=== PATIENT | male | born 1975 ===

== ENCOUNTER 2020-06-22 07:24 | Outpatient (REF) | payer OTHER, SELFPAY ==
[2020-06-22 11:07] LABS: Alanine Aminotransferase 114 U/L (0-40); Albumin Level 4.3 g/dL (3.5-5.0); Alkaline Phosphatase 99 U/L (39-117); Anion Gap 10 (12-20); Aspartate Amino Transferase 123 U/L (5-37); Bilirubin Total 0.5 mg/dL (0.0-1.0); Blood Urea Nitrogen 20 mg/dL (9-16); Calcium 9.2 mg/dL (8.4-10.2); Carbon Dioxide 27 mmol/L (22-29); Chloride 106 mmol/L (96-108); Cholesterol 211 mg/dL; Estimated Glomerular Filt Rate > 60; Glucose Fasting 101 mg/dL (60-99); HDL Cholesterol 37 mg/dL; Potassium 4.9 mmol/l (3.3-5.1); Sodium 138 mmol/L (135-145); Total Protein 7.2 g/dL (6.5-8.0); Triglycerides 443 mg/dL
== END 2020-06-22 07:25 | disposition home or self-care (01) ==
LOC: HO.WFDLDS 07:24
PROVIDERS: Visit Provider Family Medicine
DX: Z00.00 Encounter for general adult medical examination without abnormal findings (principal); Z13.220 Encounter for screening for lipoid disorders; Z13.29 Encounter for screening for other suspected endocrine disorder
CPT/HCPCS: 80053; 80061; 84443

== ENCOUNTER 2020-09-07 07:34 | Outpatient (REF) | payer OTHER, SELFPAY ==
[2020-09-07 11:20] LABS: Alanine Aminotransferase 40 U/L (0-40); Albumin Level 4.6 g/dL (3.5-5.0); Alkaline Phosphatase 75 U/L (39-117); Anion Gap 12 (12-20); Aspartate Amino Transferase 43 U/L (5-37); Bilirubin Total 0.6 mg/dL (0.0-1.0); Blood Urea Nitrogen 20 mg/dL (9-16); Calcium 9.3 mg/dL (8.4-10.2); Carbon Dioxide 27 mmol/L (22-29); Chloride 104 mmol/L (96-108); Cholesterol 206 mg/dL; Estimated Glomerular Filt Rate > 60; Glucose Random 98 mg/dL (60-115); HDL Cholesterol 42 mg/dL; LDL Cholesterol Calculated 140 mg/dl; Potassium 4.8 mmol/L (3.3-5.1); Sodium 138 mmol/L (135-145); Total Protein 7.1 g/dL (6.5-8.0); Triglycerides 122 mg/dL
[2020-09-08 06:37] LABS: LDL Cholesterol Direct 138 mg/dL (<100)
== END 2020-09-07 07:35 | disposition home or self-care (01) ==
LOC: HO.WFDLDS 07:34
PROVIDERS: Visit Provider Family Medicine
DX: Z00.00 Encounter for general adult medical examination without abnormal findings (principal); E78.2 Mixed hyperlipidemia; R74.01 Elevation of levels of liver transaminase levels
CPT/HCPCS: 36415; 80053; 80061; 83721

== ENCOUNTER 2023-09-08 11:46 | Outpatient (AMB) | payer OTHER, SELFPAY ==
--- NOTE | 2023-09-08 12:10 | A.OFFPC_ITS ---
Vital Signs 09/08/23 12:11 Height 5 ft 9 in Weight 239 lb BMI 35.3 BP 142/92 H Blood Pressure Location Lt brachial Position Sitting Pulse 66 Pulse Oximetry (%) 100 Oxygen Delivery Method Room Air Intake Visit Reasons: Annual Physical Intake Note: Patient is here for his physical today. Allergies No Known Allergies [No Known Allergies*] Allergy (Verified 09/08/23 12:12) Tobacco use date assessed: 09/08/23 Dental Screening Dental Screen Date: 09/08/23 Did you have a dental visit in the last 12 months?: Yes Did you have a dental problem in the last 6 months where you did not have access to dental care?: No Was dental information given to patient?: Patient has dentist HPI Annual Physical HPI Details 47 y/o male presents for a CPE with f/u labs and health maintenance. No recent labs to review. Blood pressure today 142/92. He is not on any meds for his blood pressure. Pt reports snoring and does have prominent tonsils. HPI Comments History of Present Illness Details Documentation assistance for Jose Miguel Kimble MD, was provided by Javier Parra,? Site Project Manager on 09/08/2023 12:41 PM EST. I, Dr. Kimble, have read, observed, and verified documentation.? [facility] Surgical History (Updated 09/08/23 @ 12:15 by Cece Brown CMA) S/P hernia surgery Social History Housing: House Patient Tobacco Use Status: Former Tobacco user e-Cigarette/Vaping Use: Never Used service: No Current occupational status: employed Current occupation: rehabilitation consultant Cognitive needs: No Hearing needs: No Vision needs: No Questionnaire PHQ-9 Over the last 2 weeks, how often have you been bothered by any of the following problems? 1. Little interest or pleasure in doing things: not at all 2. Feeling down, depressed, or hopeless: not at all 3. Trouble falling or staying asleep, or sleeping too much: not at all 4. Feeling tired or having little energy: not at all 5. Poor appetite or overeating: not at all 6. Feeling bad about yourself - or that you are a failure or have let yourself or your family down: not at all 7. Trouble concentrating on things, such as reading the newspaper or watching television: not at all 8. Moving or speaking so slowly that other people could have noticed. Or the opposite - being so fidgety or restless that you have been moving around a lot more than usual: not at all 9. Thoughts that you would be better off or of hurting yourself in some way: not at all Total score: 0 Depression Screening Interpretation: Negative Depression Screening Done: Yes 75248 - PHQ-9 Billing: Yes Source: Developed by Drs. Davon Lay, Miranda Rodríguez, Zheng Dueñas and colleagues, with an educational shelia from [employer]. Thrive Questionnaire Date Thrive assessed: 09/08/23 I am a: Patient What is your living situation today?: I have a steady place to live Within the past 12 months, did the food you bought not last and you didn't have the money to get more?: Never true Within the past 12 months, did you worry whether your food would run out before you got money to buy more?: Never true Do you have trouble paying for medicines?: No Do you have trouble getting transportation to medical appointments?: No Do you have trouble paying your heating and electricity bill?: No Do you have trouble taking care of your child, family member or friend?: No Do you have trouble with day-to-day activities such as bathing, preparing meals, shopping, managing finances, etc.?: No Are you currently unemployed and looking for a job?: No Are you interested in more education?: No THRIVE Score: 0 AUDIT C Alcohol Use Questionnaire (AUDIT-C) 1. How often do you have a drink containing alcohol?: 2-3 times a week 2. How many drinks containing alcohol do you have on a typical day when you are drinking?: 1 or 2 3. How often do you have six or more drinks on one occasion?: Never Total Score: 3 KYLEIGH-7 AMB Questionnaire KYLEIGH-7 Date KYLEIGH - 7 assessed: 09/08/23 Feeling nervous, anxious, or on edge: 0 = Not at all Not being able to stop or control worryin = Not at all Worrying too much about different things: 0 = Not at all Trouble relaxin = Not at all Being so restless that it is hard to sit still: 0 = Not at all Becoming easily annoyed or irritable: 0 = Not at all Feeling afraid as if something awful might happen: 0 = Not at all Total KYLEIGH-7 score (0-4 normal; 5-9 mild; 10-14 moderate; 15-21 severe): 0 Source: Developed by Drs. Davon Lay, Miranda Rodríguez, Zheng Dueñas and colleagues, with an educational shelia from [employer]. KYLEIGH-7 Assessment Billing KYLEIGH-7 Assessment Tool: KYLEIGH-7 Assessment 97367 Review of Systems Const Denies chills, Denies fatigue, Denies fever(s), Denies headache(s) and Denies weakness Eyes Denies change in vision ENT Denies dizziness, Denies headache(s), Denies hearing loss, Denies nasal congestion, Denies sinus pain, Denies sinus pressure and Denies sore throat Card Denies chest pain, Denies lightheadedness, Denies dyspnea and Denies other (palpitations) Resp Denies cough, Denies dyspnea and Denies wheezing GI Denies abdominal pain, Denies melena, Denies hematochezia, Denies change in bowel habits, Denies dyspepsia and Denies nausea Denies hematuria and Denies dysuria Musc Denies abnormal gait, Denies myalgias, Denies arthralgias, Denies numbness and Denies tingling Skin/Breast Denies rash, Denies unusual bruising and Denies wounds Neuro Denies abnormal gait, Denies dizziness, Denies headache(s), Denies memory loss, Denies numbness, Denies Sensory deficit (Neuro), Denies tingling and Denies weakness Psych Denies anxiety, Denies depression and Denies memory loss Endo Denies cold intolerance, Denies fatigue, Denies heat intolerance, Denies polydipsia and Denies polyuria Messi/Lymph Denies easy bleeding and Denies easy bruising Aller/Immun Denies wheezing Physical exam (Primary Care) Vital Signs: Last Vital Signs Pulse 66 09/08/23 12:11 BP 142/92 H 09/08/23 12:11 Pulse Ox 100 09/08/23 12:11 Oxygen Delivery Method Room Air 09/08/23 12:11 BMI result Body Mass Index 35.3 Tobacco/Smoking Status: Tobacco use Status Tobacco use date assessed 09/08/23 09/08/23 12:22 Patient Tobacco Use Status Former Tobacco user 09/08/23 12:22 e-Cigarette/Vaping Use Never Used 09/08/23 12:22 PHQ-9: PHQ-9 Score PHQ-9: Total score 0 09/08/23 12:22 Depression Screening Interpretation: Negative Thrive Assessment: Date of Thrive Assessment Date Thrive assessed 09/08/23 09/08/23 12:22 Const General: no acute distress, well developed, alert and awake Nutritional Appearance: well nourished Orientation/consciousness: patient oriented x3 HENMT Head: Yes normocephalic and Yes atraumatic Ears: hearing grossly normal bilaterally and TM's normal bilaterally General nose exam: Normal external nose present and Normal nares present Mouth: Normal oral and palatal mucosa present and moist mucous membranes Teeth and gingiva: dentition normal Throat: Yes posterior oropharynx normal Eyes General: appearance normal, both eyes and all related structures Pupils: Equal, round and reactive pupils present and Pupil accommodation reflex normal EOM: EOMs intact bilaterally Neck Neck: Yes normal visual inspection, Yes no lymphadenopathy and Yes trachea midline Thyroid: Thyroid normal Carotids: no bruits Lymphatic: no lymphadenopathy noted Chest Chest palpation & inspection: normal inspection of the chest Resp Effort & Inspection: normal respiratory effort Auscultation: clear to auscultation bilaterally Cardio Rate: regular rate Rhythm: regular rhythm Heart sounds: S1 normal heart sound present, S2 normal heart sound present, no gallops, no murmurs and no rubs Bruits: no abdominal aortic bruits and no carotid bruits GI Palpation (GI): No Abdominal aortic bruit present, Soft to palpation, nontender, No hepatosplenomegaly present and No Rebound tenderness present Auscultation: normal bowel sounds General: Yes no CVA tenderness Back/Spine/Pelvis Back: no CVA tenderness Cervical Spine: cervical ROM normal and No Cervical spine tenderness Thoracic/Lumbar Spine: thoraco-lumbar ROM normal, No pain with thoraco-lumbar ROM, No thoracic spinal tenderness and No lumbar spinal tenderness Skin Lesions: no lesions Rashes: no rashes Trauma: no lacerations or abrasions Wounds: no wounds Nails: normal Neuro General: patient oriented x3 Cranial nerves: Yes Equal, round and reactive pupils present Cognition (Neuro): normal cognition Gait exam (Neuro): Normal gait present Motor exam (neuro): 5/5 motor strength present throughout Sensory Exam: No Sensory deficit (Neuro) Deep tendon reflexes (DTR's): Right patellar reflex intensity grade: 2+ and Left patellar reflex intensity grade: 2+ Extrem General: Yes normal to inspection and No edema Psych Appearance: grossly normal Affect: normal affect Attitude: cooperative Thought process: Normal thought process present Assessment and Plan Assessment & Plan (1) Annual physical exam: Code(s): Z00.00 - Encounter for general adult medical examination without abnormal findings Plan: 47-year-old?male?presents?for?complete?physical?exam Encouraged?healthy?diet?with?active?lifestyle?and?exercise (2) Hypertension: Code(s): I10 - Essential (primary) hypertension (3) Mixed hyperlipidemia: Code(s): E78.2 - Mixed hyperlipidemia Plan: Elevated?lipid?levels?and?his?triglycerides?have?been?very?high. He?was?treated?with?gemfibrozil He?will?get?his?labs?rechecked?checked?as?soon?as?he?can?and?we?can?follow-up?at ?a?soon-visit Will?likely?need?to?resume?a?fenofibrate (4) Screening for prostate cancer: Code(s): Z12.5 - Encounter for screening for malignant neoplasm of prostate Plan: Check?PSA (5) Elevated blood pressure reading without diagnosis of hypertension: Code(s): R03.0 - Elevated blood-pressure reading, without diagnosis of hypertension Plan: Will?recheck?his?blood?pressure?at?his?next?visit. If?still?high,?we?should?discuss?treatments?for?hypertension (6) Screening for colon cancer: Code(s): Z12.11 - Encounter for screening for malignant neoplasm of colon Plan: Recent?Cologuard?test?last?month?was?negative Up-to-date Will?continue?screening?every?3?year (7) Sleep apnea: Code(s): G47.30 - Sleep apnea, unspecified Plan: Snoring,?gasping?and?prominent?tonsil Referred?to?Sleep?Medicine (8) Change in hearing: Code(s): H91.90 - Unspecified hearing loss, unspecified ear Plan: Mild?decrease?in?hearing?but?patient?notes?that?it?seems?to?be?progressing. Check?audiology May?need?referral?to?ENT Orders: Orders Comprehensive [place]. Panel Fast Today Z00.00 - Encounter for general adult medical examination without abnormal findings Prostate Specific Antigen Scr Today Z12.5 - Encounter for screening for malignant neoplasm of prostate TSH reflex Free T4 Today Z00.00 - Encounter for general adult medical examination without abnormal findings UA and rflx microscopic Today Z00.00 - Encounter for general adult medical examination without abnormal findings Lipid Panel Today Z00.00 - Encounter for general adult medical examination without abnormal findings Microalbumin, Random (w Creat) Today I10 - Essential (primary) hypertension Referrals Audiology Referral H91.90 - Unspecified hearing loss, unspecified ear Sleep Medicine Referral G47.30 - Sleep apnea, unspecified Coding Level of Care Code Est Pt Level 3 (03761) Est Pt Prev Care 40-64y(75739) Diagnoses Annual physical exam Z00.00 Hypertension I10 Mixed hyperlipidemia E78.2 Screening for prostate cancer Z12.5 Elevated blood pressure reading without diagnosis of hypertension R03.0 Screening for colon cancer Z12.11 Sleep apnea G47.30 Change in hearing H91.90 Additional Codes KYLEIGH-7 Assessment Billing - KYLEIGH-7 Assessment Tool: KYLEIGH-7 Assessment 32957 ([id number])
[2023-09-08 12:11] VITALS: BP 142/92; PULSE 66; O2SAT 100; BMI 35.3
== END 2023-09-08 12:43 | disposition home or self-care (01) ==
PROVIDERS: PCP Family Medicine; Visit Provider Family Medicine
DX: Z00.00 Encounter for general adult medical examination without abnormal findings (principal); I10 Essential (primary) hypertension; E78.2 Mixed hyperlipidemia; Z12.5 Encounter for screening for malignant neoplasm of prostate; R03.0 Elevated blood-pressure reading, without diagnosis of hypertension; Z12.11 Encounter for screening for malignant neoplasm of colon; G47.30 Sleep apnea, unspecified; H91.90 Unspecified hearing loss, unspecified ear
CPT/HCPCS: 99396

== ENCOUNTER 2023-10-13 15:31 | Outpatient (AMB) | payer OTHER, SELFPAY ==
--- NOTE | 2023-10-13 15:36 | A.OFFVIS_ITS ---
Intake Vital Signs 10/13/23 15:40 Height 5 ft 9 in Weight 242 lb 6 oz BMI 35.8 BP 120/82 Blood Pressure Location Lt brachial Position Sitting Pulse 73 Pulse Source Pulse Oximeter Pulse Oximetry (%) 97 Oxygen Delivery Method Room Air Intake Visit Reasons: INP-JOSE MANUEL - CONF w/address Intake Note: Patient presents for JOSE MANUEL. Allergies No Known Allergies [No Known Allergies*] Allergy (Verified 10/13/23 15:40) HPI HPI Comments History of Present Illness Details 48 y/o male patient presents for new in- person visit for sleep consultation. Pt reports loud snoring, and it has been progressed. Pt does not have difficulty falling asleep or staying sleep. His BP was elevated recently and his primary care wants to r/o sleep apnea. He drinks usually 1 can of beer before sleep, maybe couple of beers on weekends. Sleep questionnaire: Have you ever been diagnosed with a sleep disorder? No. Have you ever had a sleep study in the past? No. Have you ever been treated for a sleep disorder? No. Do you take medications for a sleep disorder? No. Do you snore? Yes. Do you wake up gasping at night? No. Do you have episodes of apneas? No. If yes, are they witnessed? No. Do you have episodes of nocturnal chest pain or dyspnea? No. Do you have difficulty initiating sleep? No. Do you have difficulty maintaining sleep? No. Do you wake up tired? No. Do you have headaches upon awakening? No. Do you wake up with dry mouth or throat? Not usually. Do you have GERD? No. Do you have nocturia? No. Do you have nocturnal leg cramps? No. Do you have symptoms of restless legs? No. Do you act out your dreams? Yes, sometimes. Sleep hygiene questionnaire: What is your usual sleep routine? Usual bedtime is at 10-11 pm ; Usual wake up time is at 5 am. Do you take naps? No. Is your sleep environment cool, dark, and quiet? Yes. Do you exercise? Treadmill and wt lifting. Do you take caffeine or other stimulants? 3-4 cups of coffee throughout the day. Do you use electronics in bed? No. What is your work schedule? 8 am- 5 pm. Hypersomnolence questionnaire: Do you have daytime tiredness or fatigue? Yes. Do you easily fall asleep when inactive? Yes. Have you ever had episodes of sudden weakness? No. Have you ever had episodes of sudden weakness associated with strong emotions? No. PFSH Surgical History S/P hernia surgery Social History Housing: House Patient Tobacco Use Status: Former Tobacco user e-Cigarette/Vaping Use: Never Used service: No Current occupational status: employed Current occupation: property management accountant Cognitive needs: No Hearing needs: No Vision needs: No Review of Systems Const All systems reviewed & are unremarkable except as noted in HPI and below Physical Exam Vital Signs: Last Vital Signs Pulse 73 10/13/23 15:40 BP 120/82 10/13/23 15:40 Pulse Ox 97 10/13/23 15:40 Oxygen Delivery Method Room Air 10/13/23 15:40 BMI result Body Mass Index 35.8 Const General: cooperative and healthy appearing Nutritional Appearance: obese Orientation/consciousness: patient oriented x3 Neck Neck: Yes full ROM and Yes supple Resp Effort & Inspection: normal respiratory effort and able to speak in complete s entences Neuro General: patient oriented x3, gait normal and moves all extremities Cranial nerves: Yes CN's II-XII intact bilaterally Cognition (Neuro): normal cognition Gait exam (Neuro): Normal gait present Motor exam (neuro): 5/5 motor strength present throughout Psych Appearance: grossly normal Mental Status: mental status grossly normal Affect: normal affect Attitude: cooperative Assessment & Plan Assessment & Plan (1) Loud snoring: Code(s): R06.83 - Snoring (2) Sleep apnea: Code(s): G47.30 - Sleep apnea, unspecified Plan Pt is advised to undergo home sleep study to assess for sleep apnea. Will f/u with pt after study to discuss results and appropriate treatment options. Sleep hygiene education provided. Advised patient to limit alcohol intake before bedtime to have good quality sleep. Pt to call with any worsening concerns or questions. Orders: Orders RT home sleep study 10/13/23 G47.30 - Sleep apnea, unspecified, R03.0 - Elevated blood-pressure reading, without diagnosis of hypertension, R06.83 - Snoring Coding Level of Care Code New Pt Level 3 (37227) Diagnoses Loud snoring R06.83 Sleep apnea G47.30
[2023-10-13 15:40] VITALS: BP 120/82; PULSE 73; O2SAT 97; BMI 35.8
== END 2023-10-13 15:59 | disposition home or self-care (01) ==
PROVIDERS: PCP Family Medicine; Visit Provider Nurse Practitioner Family
DX: R06.83 Snoring (principal); G47.30 Sleep apnea, unspecified
CPT/HCPCS: 99203

== ENCOUNTER → 2023-10-13 15:31 | Outpatient (BNVA) | payer OTHER, SELFPAY | PROVIDERS: PCP Family Medicine; Visit Provider Nurse Practitioner Family ==

== ENCOUNTER 2024-03-02 08:00 | Outpatient (AMB) | payer OTHER, SELFPAY ==
[2024-03-02 08:08] VITALS: BP 122/76; PULSE 72; RESP 16; O2SAT 98; BMI 36.0
--- NOTE | 2024-03-02 08:08 | A.OFFVIS_ITS ---
Vital Signs 03/02/24 08:08 Height 5 ft 9 in Weight 244 lb BMI 36.0 BP 122/76 Blood Pressure Location Rt brachial Position Sitting Respiration 16 Pulse 72 Pulse Source Pulse Oximeter Pulse Oximetry (%) 98 Oxygen Delivery Method Room Air Intake Visit Reasons: 4 mo f/u-LVM Intake Note: Pt presents tot he office for a 5 month follow up for snoring. 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 Pt denies any significant interval medical changes. Pt did not have HST after the last visit, he was under the impression that he did not really need to do it. However, he has been told that he is having increased snoring, witnessed apneas, which is scaring his partner. He iis more concerned. He also endorses unrefreshing sleep, some daytime sleepiness but tends to be active throughout the day so not many opportunities to sleep during the day. He notes he has always had enlarged tonsils. Not prone to frequent throat infections or strep throat type infections. He has been trying to eat better. His BMI is 36. [facility], [facility] Surgical History S/P hernia surgery Social History Housing: House Patient Tobacco Use Status: Former Tobacco user e-Cigarette/Vaping Use: Never Used service: No Current occupational status: employed Current occupation: hedge fund accountant Cognitive needs: No Hearing needs: No Vision needs: No Physical Exam Vital Signs: Last Vital Signs Pulse 72 03/02/24 08:08 Resp 16 03/02/24 08:08 BP 122/76 03/02/24 08:08 Pulse Ox 98 03/02/24 08:08 Oxygen Delivery Method Room Air 03/02/24 08:08 BMI result Body Mass Index 36.0 Const General: cooperative and no acute distress Orientation/consciousness: patient oriented x3 HEENT Other: Mallampati stage III w/ enlarged tonsils Resp Effort & Inspection: normal respiratory effort and able to speak in complete sentences Neuro General: patient oriented x3 Cranial nerves: Yes CN's II-XII intact bilaterally Cognition (Neuro): normal cognition Psych Appearance: grossly normal Mental Status: mental status grossly normal Speech and movement: Normal speech and movement present Affect: normal affect Attitude: cooperative Assessment & Plan Assessment & Plan (1) Loud snoring: Code(s): R06.83 - Snoring Category: Medical (2) Elevated blood pressure reading without diagnosis of hypertension: Code(s): R03.0 - Elevated blood-pressure reading, without diagnosis of hypertension Category: Medical (3) Witnessed apneic spells: Code(s): R06.81 - Apnea, not elsewhere classified Category: Medical (4) Excessive daytime sleepiness: Code(s): G47.19 - Other hypersomnia Category: Medical Plan Pt advised to undergo HST to assess for sleep apnea. Upon review, consider next steps. If HST does not show sleep apnea, consider referral to ENT. f/u upon review of above and in 6 months or sooner prn. Orders: Orders RT home sleep study Today G47.19 - Other hypersomnia, R03.0 - Elevated blood- pressure reading, without diagnosis of hypertension, R06.81 - Apnea, not elsewhere classified, R06.83 - Snoring Coding Level of Care Code Est Pt Level 3 (32264) Diagnoses Loud snoring R06.83 Elevated blood pressure reading without diagnosis of hypertension R03.0 Witnessed apneic spells R06.81 Excessive daytime sleepiness G47.19 [place] Sleepiness Scale Questions Sitting and reading: moderate chance of dozing Watching TV: moderate chance of dozing Sitting inactive in a theater, movie etc.: moderate chance of dozing As a passenger in a car for an hour without break: would never doze Lying down in the afternoon when circumstances permit: moderate chance of dozing Sitting and talking to someone: would never doze Sitting quietly after lunch without alcohol: moderate chance of dozing In a car, while stopped for a few minutes in the traffic: would never doze ESS < 10: normal, ESS > 12: pathologic: 10
== END 2024-03-02 08:36 | disposition home or self-care (01) ==
PROVIDERS: PCP Family Medicine; Visit Provider Nurse Practitioner Family
DX: R06.83 Snoring (principal); R03.0 Elevated blood-pressure reading, without diagnosis of hypertension; R06.81 Apnea, not elsewhere classified; G47.19 Other hypersomnia
CPT/HCPCS: 99213

== ENCOUNTER → 2024-03-02 08:00 | Outpatient (BNVA) | payer OTHER, SELFPAY | PROVIDERS: PCP Family Medicine; Visit Provider Nurse Practitioner Family ==

== ENCOUNTER → 2024-05-17 08:00 | Outpatient (REF) | payer OTHER, SELFPAY | LOC: HO.SL 08:00 | PROVIDERS: PCP Family Medicine; Visit Provider Nurse Practitioner Family | DX: G47.33 Obstructive sleep apnea (adult) (pediatric) (principal) | CPT/HCPCS: 95806 ==